=== PATIENT | male | born 1945 | race Caucasian/White ===

== ENCOUNTER → 2019-01-20 | Outpatient (CLI) | payer BC ==
--- NOTE | 2019-01-20 14:35 | NM ---
EXAMINATION TYPE: NM bone scan whole body DATE OF EXAM: 01/20/2019 COMPARISON: NONE HISTORY: Lower back pain Delayed whole-body scanning was performed following the injection of 25.3 mCi Tc 99m MDP. Images acq uired 3 hours post injection. FINDINGS: There is degenerative uptake noted about the mid thoracic spine and lower lumbar spine. Degenerative uptake is also identified throughout the cervical spine, bilateral shoulders, sternoclavicular joints , elbows, wrists, left hand and left ankle/midfoot. No intense uptake is identified to suggest metast atic disease. IMPRESSION: Degenerative uptake as discussed above.
== END | disposition home or self-care (01) ==
LOC: RADNMMAIN 10:29
PROVIDERS: ATTEND Orthopaedic Surgery Orthopaedic Surgery of the Spine
DX: M47.816 Spondylosis without myelopathy or radiculopathy, lumbar region (principal); M47.814 Spondylosis without myelopathy or radiculopathy, thoracic region; M47.812 Spondylosis without myelopathy or radiculopathy, cervical region; M19.012 Primary osteoarthritis, left shoulder; M19.011 Primary osteoarthritis, right shoulder; M19.022 Primary osteoarthritis, left elbow; M19.021 Primary osteoarthritis, right elbow; M19.042 Primary osteoarthritis, left hand; M19.032 Primary osteoarthritis, left wrist; M19.031 Primary osteoarthritis, right wrist; M19.072 Primary osteoarthritis, left ankle and foot; E11.9 Type 2 diabetes mellitus without complications; Z98.890 Other specified postprocedural states
CPT/HCPCS: 78306; A9503

== ENCOUNTER → 2019-02-19 | Outpatient (CLI) | payer BC ==
[2019-02-19 11:53] VITALS: BP 120/69; PULSE 77; RESP 16
--- NOTE | 2019-02-20 11:12 | P.PAINCN ---
History of Present Illness - Reason for Consult Consult date: 02/19/19 - History of Present Illness This is the initial consultation visit for this 73 years old male with a chronic history of severe low back pain. Reported that the pain started more than 40 years ago, and he had back surgery, and he did fairly well until 20 years ago when he started having issues with the back pain, he reported the back pain is constant and increases with any activity, interfering with her quality of life, it is dull aching pain that radiated to the buttock area and to the posterior aspect of both legs, is able to ambulate, he denies any fever or night sweats and there is no change in the bowel movements or urination, intensity of the pain 6-7/10 increased to 10 over 10 with activity, currently he is on the Neurontin 300 mg 3 times a day and Tylenol when necessary which provided minimal relief for his Past Medical History Past Medical History: Atrial Fibrillation, Cancer, Diabetes Mellitus, GERD/Reflux, Hyperlipidemia, Hypertension, Myocardial Infarction ([place]), Musculoskeletal Disorder, Prostate Disorder Additional Past Medical History / Comment(s): hx. colon cancer 15 yrs., prostate cancer 8 yrs. ago, lump on right kidney-dr. butterfield, Raynaud's, all fingers in right hand numb currently Last Myocardial Infarction Date:: unknown History of Any Multi-Drug Resistant Organisms: None Reported Past Surgical History: Back Surgery, Bowel Resection, Cholecystectomy, Heart Catheterization With Stent, Hernia Repair, Orthopedic Surgery, Prostate Surgery Additional Past Surgical History / Comment(s): robotic prostatectomy, repair aneurysm right hand, index finger surgery left hand Past Anesthesia/Blood Transfusion Reactions: No Reported Reaction Date of Last Stent Placement:: unknown Past Psychological History: No Psychological Hx Reported Smoking Status: Former smoker Past Alcohol Use History: Rare Additional Past Alcohol Use History / Comment(s): quit smoking 20 yrs. ago, started @age of 15 1ppd Past Drug Use History: None Reported Medications and Allergies Home Medications Medication Instructions Recorded Confirmed Type Acetaminophen [Tylenol] 325 mg PO Q6H PRN 01/24/19 02/19/19 History Apixaban [Eliquis] 5 mg PO BID 01/24/19 02/19/19 History Atorvastatin [Lipitor] 10 mg PO DAILY 01/24/19 02/19/19 History Carvedilol [Coreg] 25 mg PO BID 01/24/19 02/19/19 History Furosemide [Lasix] 20 mg PO DAILY 01/24/19 02/19/19 History Gabapentin [Neurontin] 300 mg PO TID 01/24/19 02/19/19 History Losartan [Cozaar] 12.5 mg PO DAILY 01/24/19 02/19/19 History Omeprazole [PriLOSEC] 20 mg PO Q2D 01/24/19 02/19/19 History Sertraline [Zoloft] 50 mg PO DAILY 01/24/19 02/19/19 History Spironolactone [Aldactone] 25 mg PO BID 01/24/19 02/19/19 History metFORMIN HCL [Glucophage] 500 mg PO BID 01/24/19 02/19/19 History Allergies Allergy/AdvReac Type Severity Reaction Status Date / Time No Known Allergies Allergy Verified 02/19/19 11:30 Physical Exam Vitals: Vital Signs Pulse Resp BP Pulse Ox 02/19/19 11:29 77 16 120/69 97 REVIEW OF ORGAN SYSTEMS: CONSTITUTIONAL: No fevers or chills. No recent weight loss. EYES: denies troubles with vision. HEENT: No difficulties with hearing. No nosebleeds. No difficulty swallowing. RESPIRATORY: Denies any troubles with breathing or dyspnea on exertion. CARDIOVASCULAR: Denies any chest pain, or recent heart attacks, he had A. fib and currently on ELIQUIS. GASTROINTESTINAL: Denies fatty food intolerance. Has change in bowel habits and gas bloat. GENITOURINARY: Denies any blood in urine. Has increased urinary frequency. NEUROLOGICAL: Severe low back pain, No seizure disorders or headaches. MUSCULOSKELETAL: Has back pain. SKIN:no skin cancer. No rash. PSYCHIATRIC: Denies current depression or suicidal thoughts. ENDOCRINE: Denies current thyroid disorders. Denies any blood sugar glucose intolerance. HEME/LYMPHATIC: Denies any lumps and bumps around the neck. On ELIQUIS ALLERGY/IMMUNOLOGY: No immunoglobulin therapy. No immune deficiencies. BREAST: Denies current breast lumps, pain or nipple discharge. Physical Examinations : Constitutiona : Cooperative , not in acute distress . HEENT : nech : supple , no Lymphadenopathy , normal thyroid size . : eyes no ptosis , no icterus, no photophobia . : ENT normal of hearing , normal oropharynx , no Thrush . Respiratory : Chest clear to auscultations Bilaterally , no wheezing , no Rhonchi . Cardiovascula : iregular rate and rhythem , S1 , S2 , no S3 , no S4. Gastrointestina : abdomen soft no tenderness , bowel sounds , no organomegally . Genitourinary : Defferred . neurologic : Cranial nerve II to XII intact , no focal neurological deffecit . psychatric : alert , oriented X 3 , appropriate affect , intact judgment and insight . Lymphatic : no Lymphadenopathy . musculoskeltal : Lumber spine moter stegnth lower extremities ,thigh and legs 5/5 Right side , 5/5 Left side deep tendon reflexes : normal Knee Jerk , normal ankle Jerk lumber facet Loading Test= positive Right , positive Left Range of motion of the lumbar spine Flexion 30 degrees, extension 10 degrees strait leg raising test , positive at 30 degree Fabere test= positive Right , and positive left . Sever tenderness over the Sacroiliac joint on the Right , and Left sides . 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 2-lumbar spondylosis with lumbar facet arthropathy. 3-lumbar foraminal stenosis, multilevel prominent epidural fat. Patient could benefit from bilateral diagnostic medial branch block lumbar area L3, L4, L5 x2 and possible RFA if it's positive, Patient had a prominent epidural fat, which make it relative contraindication to do caudal epidural. Procedure risk and benefits and alternatives discussed with patient and he agreed with proceeding Patient does not have to hold his ELIQUIS before the procedure because it is considered low risk procedure Time with Patient: Greater than 30 PQRS Measure Charge Sheet Measure #130: Documentation of Current Meds in Medical Chart: Patient's medications documented in chart Measure #226: Tobacco Use: Screen & Cessation Intervention: Pt not a tobacco user Measure #111: Pneumonia Vaccination: Pneumococcal vaccine administered or previously received Measure #47: Advance Care Plan: Advance care planning discussed & documented, pt chose/unable to give Measure #412: Opioid Treatment Agreement: No documentation of signed opioid treatment agreement Measure #408: Opioid Therapy Follow-up Evaluation: Patient had NO f/u eval minimum every 3 months during opioid therapy Measure #317: Preventitive Care & Scrn High Bld Press & F/U: Normal blood pressure, f/u not required Measure #128: Body Mass Index (BMI) Screening & Follow-up: BMI documented ABOVE normal parameters - f/u documented Measure #131: Pain Assessment & Follow-up: Pain positive & plan documented, Follow-up scheduled Measure #431: Unhealthy Alcohol Use Preventative Care & Scrn: Patient not identified as an unhealthy alcohol user PQRS Narrative: Smoking Status Former smoker Blood Pressure 120/69 Pain Intensity [Bilateral 6 Lower Posterior Back] Scale Used Numeric (1 - 10) Hx Alcohol Use (MH) Yes Home Medications: Ambulatory Orders Acetaminophen [Tylenol] 325 mg PO Q6H PRN 01/24/19 Apixaban [Eliquis] 5 mg PO BID 01/24/19 Atorvastatin [Lipitor] 10 mg PO DAILY 01/24/19 Carvedilol [Coreg] 25 mg PO BID 01/24/19 Furosemide [Lasix] 20 mg PO DAILY 01/24/19 Gabapentin [Neurontin] 300 mg PO TID 01/24/19 Losartan [Cozaar] 12.5 mg PO DAILY 01/24/19 Omeprazole [PriLOSEC] 20 mg PO Q2D 01/24/19 Sertraline [Zoloft] 50 mg PO DAILY 01/24/19 Spironolactone [Aldactone] 25 mg PO BID 01/24/19 metFORMIN HCL [Glucophage] 500 mg PO BID 01/24/19
== END ==
LOC: PNWHC3 10:59
PROVIDERS: ATTEND Specialist
DX: G89.29 Other chronic pain (principal); M48.061 Spinal stenosis, lumbar region without neurogenic claudication; M47.816 Spondylosis without myelopathy or radiculopathy, lumbar region; M46.96 Unspecified inflammatory spondylopathy, lumbar region; M96.1 Postlaminectomy syndrome, not elsewhere classified; Z87.891 Personal history of nicotine dependence; Z79.01 Long term (current) use of anticoagulants; Z79.84 Long term (current) use of oral hypoglycemic drugs; Z79.899 Other long term (current) drug therapy
CPT/HCPCS: 99201

== ENCOUNTER → 2019-03-24 | Day surgery (SDC) | payer BC ==
[2019-03-20 11:31] VITALS: BMI 26.9
[~2019-03-24] MED LIST: BUPIVACAINE (PF) 0.5% 30 ML VIAL ONE; IV FLUID CONTINUATION 600 ML IV ONE; LACTATED RINGERS 1,000 ML IV SCH; MIDAZOLAM 2 MG/2 ML VIAL ONE; fentaNYL (PF) 50 MCG/ML 2 ML AMP ONE; methylPREDNISolone ACETATE 40 MG/ML 1 ML VIAL ONE
[2019-03-24 09:56] VITALS: RESP 16; TEMP 98
[2019-03-24 09:57] LABS: Glucose,Whole Blood 171 mg/dL (75-99)
--- NOTE | 2019-03-24 10:15 | P.PCN ---
Date of Procedure: 03/24/19 Procedure(s) Performed: PREOPERATIVE DIAGNOSIS : 1- Lumbar spondylosis with Facet Arthropathy without myelopathy . 2- Lumber degenerative disc disease POSTOPERATIVE DIAGNOSIS: 1- Lumbar spondylosis with Facet Arthropathy without myelopathy . 2- Lumber degenerative disc disease PROCEDURE: Diagnostic bilateral L3 , L4 , and L5 medial branch block under fluoroscopy guidance(fluoroscopy images available in the radiology Department ) ( To target the facet joint between L4-5 , and L5-S1 ) ANESTHESIA: Local with Ropivacain 0.5 % 6 ml , moderate sedation with intravenous Versed 2 mg and Fentanyl 100 mcg. EBL: Minimal COMPLICATION: None. IV FLUIDS: 100 mL of normal saline. PROCEDURE INDICATION: Chronic low back pain secondary to Facet arthropathy unresponsive to conservative treatment. PROCEDURE DESCRIPTION: the patient was seen and identified in the preop holding area , risks and benefits and possible complications of the procedure and alternative were discussed with the patient, and the patient agreed to proceed with the procedure and signed the consent IV was started and vital signs monitored during the procedure and fluoroscopy was used to maximize the benefit and accuracy of the needle placement, and sedation was given to decrease patient anxiety, patient was taken to the procedure room and placed in prone position vital signs monitored in the back prepped with chlorhexidine X3 then under strict sterile technique using a right oblique fluoroscopy ,the junction of the transverse process and the superior articulating process of the right L3 , L4 , and L5 vertebra which corresponding to the fluoroscopy image of the eye of the Franklyn dog on the block side for the medial branches and subsequently , after local infiltration of skin and subcu tissuies with Ropivacaine 0.5 % , one mL at each level ,then 25-gauge Quincke-type needles , 3 needle was used , each one of them placed at the junction of the base of the transverse process and the superior articular process at the appropriate level, and the needle was advanced until the periosteum contacted, needle placement confirmed with AP oblique and lateral view and after appropriate needle placement confirmed, and after negative aspiration for heme and CSF and there was no paresthesia 1-1/2 mL of Ropivacaine 0.5% mixed with 20 mg Depo-Medrol , then half mL injected at each level after negative aspiration the needle subsequently removed and the same procedure repeated for the left side at left side at L3 , L4 and L5 levels. At the end of the procedure and the needles removed and a bandage applied after the skin was cleaned the cleaning solution patient taken to recovery room in stable condition and monitors in the recovery room for 20-30 minutes and discharged home in stable condition after discharge criteria met and patient will follow up with the pain clinic in 2-4 weeks
--- NOTE | 2019-03-24 10:40 | FL ---
EXAMINATION TYPE: FL guided pain mgmt statistic DATE OF EXAM: 03/24/2019 CLINICAL HISTORY: Low back pain. TECHNIQUE: Fluoroscopy. COMPARISON: None. FINDINGS: Fluoroscopic guidance was provided during pain relief procedure performed by Dr. Mcallister . A total of 11 seconds of fluoroscopic time was utilized during the procedure and 4 spot images are acquired. Images acquired shows needle localization at several levels in the lower lumbar spine and lumbosacral junction. IMPRESSION: As Above.
[2019-03-24 10:51] VITALS: BP 111/72; PULSE 81
== END | disposition home or self-care (01) ==
LOC: ORPAIN 09:34
PROVIDERS: ATTEND Specialist
DX: G89.29 Other chronic pain (principal); M47.816 Spondylosis without myelopathy or radiculopathy, lumbar region; M51.36 Other intervertebral disc degeneration, lumbar region; I48.91 Unspecified atrial fibrillation; I25.2 Old myocardial infarction; I10 Essential (primary) hypertension; E11.9 Type 2 diabetes mellitus without complications; K21.9 Gastro-esophageal reflux disease without esophagitis; Z79.01 Long term (current) use of anticoagulants; Z85.46 Personal history of malignant neoplasm of prostate; Z85.038 Personal history of other malignant neoplasm of large intestine
CPT/HCPCS: 64493; 64494; J2250; J1030; J3010; 99152; 99213

== ENCOUNTER 2019-04-07 08:54 | Day surgery (SDC) | payer BC ==
[2019-04-04 10:07] VITALS: BMI 40.8
[~2019-04-07 08:54] MED LIST changes: -IV FLUID CONTINUATION 600 ML IV ONE
[2019-04-07 09:22] VITALS: TEMP 97.7
[2019-04-07] MEDS ORDERED: LIDOCAINE 1% 20 ML VIAL (10MG/ML) FOR IV START INTRADERMA ONE (09:22)
[2019-04-07 09:25] LABS: Glucose,Whole Blood 166 mg/dL (75-99)
--- NOTE | 2019-04-07 10:25 | P.PCN ---
Date of Procedure: 04/07/19 Procedure(s) Performed: PREOPERATIVE DIAGNOSIS : 1- Lumbar spondylosis with Facet Arthropathy without myelopathy . 2- Lumber degenerative disc disease POSTOPERATIVE DIAGNOSIS: 1- Lumbar spondylosis with Facet Arthropathy without myelopathy . 2- Lumber degenerative disc disease PROCEDURE: Diagnostic bilateral L3 , L4 , and L5 medial branch block under fluoroscopy guidance(fluoroscopy images available in the radiology Department ) ( To target the facet joint between L4-5 , and L5-S1 ) #2nd ANESTHESIA:, moderate sedation with intravenous Versed 2 mg and Fentanyl 100 mcg. EBL: Minimal COMPLICATION: None. IV FLUIDS: 100 mL of normal saline. PROCEDURE INDICATION: Chronic low back pain secondary to Facet arthropathy unresponsive to conservative treatment. PROCEDURE DESCRIPTION: the patient was seen and identified in the preop holding area , risks and benefits and possible complications of the procedure and alternative were discussed with the patient, and the patient agreed to proceed with the procedure and signed the consent IV was started and vital signs monitored during the procedure and fluoroscopy was used to maximize the benefit and accuracy of the needle placement, and sedation was given to decrease patient anxiety, patient was taken to the procedure room and placed in prone position vital signs monitored in the back prepped with chlorhexidine X3 then under strict sterile technique using a right oblique fluoroscopy ,the junction of the transverse process and the superior articulating process of the right L3 , L4 , and L5 vertebra which corresponding to the fluoroscopy image of the eye of the Franklyn dog on the block side for the medial branches and subsequently , after local infiltration of skin and subcu tissuies with Ropivacaine 0.5 % , one mL at each level ,then 25-gauge Quincke-type needles , 3 needle was used , each one of them placed at the junction of the base of the transverse process and the superior articular process at the appropriate level, and the needle was advanced until the periosteum contacted, needle placement confirmed with AP oblique and lateral view and after appropriate needle placement confirmed, and after negative aspiration for heme and CSF and there was no paresthesia 1-1/2 mL of Ropivacaine 0.5% mixed with 20 mg Depo-Medrol , then half mL injected at each level after negative aspiration the needle subsequently removed and the same procedure repeated for the left side at left side at L3 , L4 and L5 levels. At the end of the procedure and the needles removed and a bandage applied after the skin was cleaned the cleaning solution patient taken to recovery room in stable condition and monitors in the recovery room for 20-30 minutes and discharged home in stable condition after discharge criteria met and patient will follow up with the pain clinic in 2-4 weeks
[2019-04-07] MEDS ORDERED: IV FLUID CONTINUATION 400 ML IV ONE (10:30)
[2019-04-07 10:34] VITALS: RESP 18
[2019-04-07 10:55] VITALS: BP 108/62; PULSE 94
--- NOTE | 2019-04-07 11:08 | FL ---
EXAMINATION TYPE: FL guided pain mgmt statistic DATE OF EXAM: 04/07/2019 CLINICAL HISTORY: Low back pain. TECHNIQUE: Fluoroscopy. COMPARISON: None. FINDINGS: Fluoroscopic guidance was provided during pain relief procedure performed by Dr. Mcallister . A total of 19 seconds of fluoroscopic time was utilized during the procedure and four spot images are acquired. Images acquired shows needle localization at several levels in the low back with L5 la minectomy defect and spinous process resection. IMPRESSION: As Above.
== END 2019-04-07 11:32 | disposition home or self-care (01) ==
LOC: ORPAIN 08:54
PROVIDERS: ATTEND Specialist
DX: G89.29 Other chronic pain (principal); M47.816 Spondylosis without myelopathy or radiculopathy, lumbar region; M51.36 Other intervertebral disc degeneration, lumbar region
CPT/HCPCS: 64493; 64494 ×2; J2250; J1030; J3010; 99152; 99153

== ENCOUNTER → 2019-04-30 | Outpatient (CLI) | payer BC ==
[2019-04-30 13:04] VITALS: BP 128/79; PULSE 98; RESP 18
--- NOTE | 2019-04-30 13:22 | P.PAINPG ---
Subjective Progress Note Date: 04/30/19 Alexis is a 73-year-old gentleman who presents today after having 2 medial branch blocks. He reports he had relief greater than 50% with the medial branch blocks. He reports he had pain relief for greater than 2 days. He felt that the pain relief was significant after the test injections and was inquiring about longer term relief. As for his pain he reports pain that goes across his low back and into both legs at times. He denies any numbness or tingling that shoots down the leg. He does have occasional numbness and tingling but is not persistent. He has some pain into both thighs. He denies any bowel or bladder incontinence. He denies any chest pain. He does have a history of atrial f ibrillation. He denies any syncope. He's been on out was for well secondary to the nature for ablation but has stopped it in the past. Objective - Vital Signs Vital signs: Vital Signs Temp Pulse 98 04/30/19 12:56 Resp 18 04/30/19 12:56 BP 128/79 04/30/19 12:56 Pulse Ox 97 04/30/19 12:56 Intake & Output 04/29/19 04/30/19 04/30/19 18:59 06:59 18:59 Weight 92.533 kg - Exam General: Awake and alert oriented 3 no distress Respiratory exam: No audible wheezing no accessory muscle usage Cardiovascular exam: regular rate, palpable bilateral pulses, no lower extremity edema Abdominal exam: No distention nontender to palpation Cervical spine: Normal alignment, Spurling's negative, facet loading negative, Environmental Studies Professor strength is 5/5, kang negative Lumbar spine: Loss of lumbar lordosis, normal alignment, tender to palpation over bilateral paraspinal muscles, facet loading is positive bilaterally. Straight leg raise is negative. Limited range of motion due to pain with flexion, extension and side bending. Sacroiliac joints: Nontender to palpation, CIRILO is negative, [place]elon negative Neuro exam: Normal sensation in bilateral upper extremities, deep tendon reflexes are 2+ bilateral upper extremities. Normal sensation in bilateral lower extremities. Deep tendon reflexes are 2+ in lower extremities Psych exam: Cooperative, appropriate mood Assessment and Plan Assessment: #1 lumbar spondylosis without myelopathy #2 chronic atrial fibrillation Plan: Had a discussion with the patient and his daughter today regarding the medial branch blocks and the potential radiofrequency ablation. I discussed the procedure in detail which included the preoperative assessment and diagnostic testing, the Intra-Op procedure and postop expectations. Patient is in agreement like to move forward. We'll send a letter to his doctor to ensure that is safe for him to stop his anticoagulation for 3 days prior to the procedure. Once we obtain that we will move forward with scheduling the procedure. I discussed this with the patient in detail. PQRS Measure Charge Sheet Measure #130: Documentation of Current Meds in Medical Chart: Patient's medications documented in chart Measure #226: Tobacco Use: Screen & Cessation Intervention: Pt not a tobacco user Measure #111: Pneumonia Vaccination: Pneumococcal vaccine NOT administered or previously given Measure #47: Advance Care Plan: Advance care planning discussed & documented, pt chose/unable to give Measure #408: Opioid Therapy Follow-up Evaluation: Patient had f/u eval minimum every 3 months during opioid therapy Measure #128: Body Mass Index (BMI) Screening & Follow-up: BMI documented within normal parameters Measure #131: Pain Assessment & Follow-up: Pain positive & plan documented Measure #431: Unhealthy Alcohol Use Preventative Care & Scrn: Patient not identified as an unhealthy alcohol user PQRS Narrative: Smoking Status Former smoker Blood Pressure 128/79 Pain Intensity [Lower Back] 6 Scale Used Numeric (1 - 10) Hx Alcohol Use (MH) Yes Home Medications: Ambulatory Orders Acetaminophen [Tylenol] 325 mg PO Q6H PRN 01/24/19 Apixaban [Eliquis] 5 mg PO BID 01/24/19 Atorvastatin [Lipitor] 10 mg PO DAILY 01/24/19 Carvedilol [Coreg] 25 mg PO BID 01/24/19 Furosemide [Lasix] 20 mg PO MOTUWETHFR 01/24/19 Gabapentin [Neurontin] 300 mg PO TID 01/24/19 Losartan [Cozaar] 12.5 mg PO HS 01/24/19 Omeprazole [PriLOSEC] 20 mg PO Q2D 01/24/19 Sertraline [Zoloft] 50 mg PO DAILY 01/24/19 Spironolactone [Aldactone] 25 mg PO BID 01/24/19 metFORMIN HCL [Glucophage] 500 mg PO BID 01/24/19 Multivitamins, Thera [Multivitamin (formulary)] 1 tab PO DAILY 03/20/19 Controlled Substance Measures - Controlled Substance Measures Is patient prescribed a controlled substance at discharge?: No
== END | disposition home or self-care (01) ==
LOC: PNWHC3 12:17
PROVIDERS: ATTEND Hospitalist
DX: M47.816 Spondylosis without myelopathy or radiculopathy, lumbar region (principal); I48.20 Chronic atrial fibrillation, unspecified; Z87.891 Personal history of nicotine dependence; Z79.01 Long term (current) use of anticoagulants; Z79.899 Other long term (current) drug therapy; Z79.84 Long term (current) use of oral hypoglycemic drugs
CPT/HCPCS: 99211

== ENCOUNTER → 2019-05-20 | Day surgery (SDC) | payer BC ==
[2019-05-16 12:54] VITALS: BMI 26.9
[~2019-05-20] MED LIST changes: -BUPIVACAINE (PF) 0.5% 30 ML VIAL ONE; +IV FLUID CONTINUATION 1,000 ML IV ONE; -LACTATED RINGERS 1,000 ML IV SCH; +ROPIVACAINE 5MG/ML 20ML VIAL ONE
--- NOTE | 2019-05-20 09:26 | P.GSHP ---
History of Present Illness H&P Date: 05/20/19 This is 73 years old male with a history of chronic and severe low back pain is diagnosed with lumbar spondylosis with lumbar facet arthropathy, he had positive results from the diagnostic medial branch block and is here today to have RFA of the medial branch lumbar area. Past Medical History Past Medical History: Atrial Fibrillation, Cancer, Diabetes Mellitus, GERD/Reflux, Hyperlipidemia, Hypertension, Myocardial Infarction ([place]), Musculoskeletal Disorder, Prostate Disorder Additional Past Medical History / Comment(s): hx. colon cancer 15 yrs., prostate cancer 8 yrs. ago, lump on right kidney-dr. butterfield, Raynaud's, all fingers in right hand numb currently Last Myocardial Infarction Date:: unknown History of Any Multi-Drug Resistant Organisms: None Reported Past Surgical History: Back Surgery, Bowel Resection, Cholecystectomy, Heart Catheterization With Stent, Hernia Repair, Orthopedic Surgery, Prostate Surgery Additional Past Surgical History / Comment(s): robotic prostatectomy, repair aneurysm right hand, index finger surgery left hand Past Anesthesia/Blood Transfusion Reactions: No Reported Reaction Date of Last Stent Placement:: unknown Smoking Status: Former smoker Medications and Allergies Home Medications Medication Instructions Recorded Confirmed Type Acetaminophen [Tylenol] 325 mg PO Q6H PRN 01/24/19 05/16/19 History Apixaban [Eliquis] 5 mg PO BID 01/24/19 05/16/19 History Atorvastatin [Lipitor] 10 mg PO DAILY 01/24/19 05/16/19 History Carvedilol [Coreg] 25 mg PO BID 01/24/19 05/16/19 History Furosemide [Lasix] 20 mg PO MOTUWETHFR 01/24/19 05/16/19 History Gabapentin [Neurontin] 300 mg PO TID 01/24/19 05/16/19 History Losartan [Cozaar] 50 mg PO HS 01/24/19 05/16/19 History Omeprazole [PriLOSEC] 20 mg PO Q2D 01/24/19 05/16/19 History Sertraline [Zoloft] 50 mg PO DAILY 01/24/19 05/16/19 History Spironolactone [Aldactone] 25 mg PO BID 01/24/19 05/16/19 History metFORMIN HCL [Glucophage] 500 mg PO BID 01/24/19 05/16/19 History Multivitamins, Thera [Multivitamin 1 tab PO DAILY 03/20/19 05/16/19 History (formulary)] Allergies Allergy/AdvReac Type Severity Reaction Status Date / Time No Known Allergies Allergy Verified 05/16/19 12:50 Surgical - Exam Physical Examinations : -Constitutiona : Cooperative , not in acute distress . -HEENT : nech : supple , no Lymphadenopathy , normal thyroid size . : eyes : no ptosis , no icterus, no photophobia . : ENT : normal of hearing , normal oropharynx , no Thrush . - Respiratory : Chest clear to auscultations Bilaterally , no wheezing , no Rhonchi . - Cardiovascula : irregular rate and rhythem , S1 , S2 , no S3 , no S4. - Gastrointestina : abdomen soft no tenderness , bowel sounds , no organomegally . - Genitourinary : Defferred . - neurologic : Cranial nerve II to XII intact , no focal neurological deffecit . -psychatric : alert , oriented X 3 , appropriate affect , intact judgment and insight . -Lymphatic : no Lymphadenopathy . - musculoskeltal : Lumber spine moter stegnth lower extremities ,thigh and legs 5/5 Right side , 5/5 Left side deep tendon reflexes : normal Knee Jerk , normal ankle Jerk lumber facet Loading Test =positive Right , positive Left Assessment and Plan Plan: Assessment and plan=1- lumbar degenerative disc disease. 2-lumbar spondylosis with lumbar facet arthropathy. Patient had positive results after the diagnostic medial branch block at L3, L4, L5 we will do RFA bilaterally Time with Patient: Less than 30
[2019-05-20 09:28] LABS: Glucose,Whole Blood 156 mg/dL (75-99)
[2019-05-20] MEDS: LACTATED RINGERS 1,000 ML IV SCH ×2 (09:28→09:29)
[2019-05-20 09:32] VITALS: RESP 16; TEMP 97.6
--- NOTE | 2019-05-20 10:07 | P.PCN ---
Date of Procedure: 05/20/19 Procedure(s) Performed: PREOPERATIVE DIAGNOSIS: 1-Lumbar Spondylosis with Facet Arthropathy without myelopathy. 2- Lumber degenerative disc disease POSTOPERATIVE DIAGNOSIS: 1- Lumbar Spondylosis with Facet Arthropathy without myelopathy. 2- Lumber degenerative disc disease PROCEDURES : Left and Right Radiofrequency thermocoagulation, L3 , L4 , and L5 medial branch, with fluoroscopic guidance (fluoroscopy images available in the radiology department) ( to denervate the facet joint at L4-5 ,and L5-S1 levels ) ANESTHESIA: Moderate sedation with intravenous versed 1 mg and fentaneyl 100 mcg, and local infiltration with Ropivacaine 0.5 % . EBL: Minimal PROCEDURE INDICATION: The patient with low back pain secondary to lumbar facet arthropathy who had more than 50% relief of her pain with previous diagnostic lumbar medial branch block with bupivacaine. PROCEDURE DESCRIPTION / TECHNIQUE: The patient was seen and identified in the preoperative area. Risks, benefits, complications, including but not limited to risk of infection ,bleeding , allergic reactions to the medications and no complete pain releife , and alternatives were discussed with the patient, the patient agreed to proceed with the procedure and signed the consent. IV was started. Vital signs remained stable throughout the procedure. Patient was taken to the OR and time out was completed. The patient was placed in the prone position on the procedure table. The lumber area was prepped and draped in the usual sterile fashion. . Vital signs were closely monitored during the procedure .IV sedation was used during the procedure to decrease patients anxiety. Using AP and then oblique fluoroscopy, the ``eye of the Franklyn dog corresponding to the connection between the superior and transverse articular processes of right L3, L4, and L5 were identified, marked, and localized with 1% lidocaine. Subsequently, a 18 -qe radiofrequency cannula with a 10- mm active tip was advanced guided by fluoroscopy to each of the``eyes of the Franklyn dog at right L3, L4, and L5. Each site then underwent sensory testing at 50 Hz and 0 to 1 volt and motor testing at 2.5 Hz and 0 to 3 volt with local stimulation, but no radicular symptoms down the legs. Thereafter each site s underwent radiofrequency thermocoagulation at 80 degrees celsius for 90 seconds after injecting 0.5 ml of PF Ropivacaine 1ml, then after the thermocoagulation done , 1 ml of the block solution containing Depo-Medrol 20 mg and 3 ml of Ropivacaine 0.5% was injected at the right L3 , L4 , and L5 , levels after negative aspiration of CSF and blood and with no paresthesias. Cannulas were retracted while injecting lidocaine 1% until the needle is out. The same procedure was repeated at the level of Left L3, L4, and L5 levels. At the end of the procedure, the skin was cleansed and bandages were applied. COMPLICATIONS: No acute complications. DISPOSITION / PLANS: The patient was placed in a supine position and transferred to the recovery area in a stable condition for observation and was discharged from the recovery room after meeting discharge criteria. Home discharge instructions given to the patient by the staff. The patient was reexamined prior to discharge. The patient will schedule a follow up in the clinic in 2-4 weeks.
--- NOTE | 2019-05-20 10:20 | FL ---
EXAMINATION TYPE: FL guided pain mgmt statistic DATE OF EXAM: 05/20/2019 CLINICAL HISTORY: Low back pain. TECHNIQUE: Fluoroscopy. COMPARISON: None. FINDINGS: Fluoroscopic guidance was provided during pain relief procedure performed by Dr. Mcallister . A total of 12 seconds of fluoroscopic time was utilized during the procedure and 3 spot images are acquired. Images acquired shows needle localization at several levels in the mid to lower lumbar sp ine. IMPRESSION: As Above.
[2019-05-20 10:29] VITALS: BP 106/68; PULSE 81
== END ==
LOC: ORPAIN 09:05
PROVIDERS: ATTEND Specialist
DX: G89.29 Other chronic pain (principal); M47.816 Spondylosis without myelopathy or radiculopathy, lumbar region; M51.36 Other intervertebral disc degeneration, lumbar region; I48.91 Unspecified atrial fibrillation; E11.9 Type 2 diabetes mellitus without complications; K21.9 Gastro-esophageal reflux disease without esophagitis; E78.5 Hyperlipidemia, unspecified; I10 Essential (primary) hypertension; I25.2 Old myocardial infarction; Z85.038 Personal history of other malignant neoplasm of large intestine; Z85.46 Personal history of malignant neoplasm of prostate; N28.9 Disorder of kidney and ureter, unspecified; I73.00 Raynaud's syndrome without gangrene; Z90.49 Acquired absence of other specified parts of digestive tract; Z95.5 Presence of coronary angioplasty implant and graft; Z90.79 Acquired absence of other genital organ(s); Z98.890 Other specified postprocedural states; Z87.891 Personal history of nicotine dependence; Z79.01 Long term (current) use of anticoagulants; Z79.899 Other long term (current) drug therapy; Z79.84 Long term (current) use of oral hypoglycemic drugs
CPT/HCPCS: 64635; 64636; J2250; J1030; J3010; J2795; 99152; 99153